=== PATIENT | female | born 1940 | race Caucasian/White ===

== ENCOUNTER 2017-08-30 10:52 | Outpatient (CLI) | payer OTHER ==
[~2017-08-30 10:52] MED LIST: DICLOFENAC POTA50 MG PO; METHOCARBAMOL500 MG PO; NAPR500T14 PO
== END 2017-08-30 11:02 | disposition home or self-care (01) ==
LOC: MAMO-SONO 10:52
DX: Z12.31 Encounter for screening mammogram for malignant neoplasm of breast (principal); Z87.898 Personal history of other specified conditions; N60.19 Diffuse cystic mastopathy of unspecified breast

== ENCOUNTER 2018-06-21 08:53 | Outpatient (CLI) | payer OTHER | END 2018-06-21 09:01 | disposition home or self-care (01) | LOC: SONOGRAMA 08:53 | DX: R10.84 Generalized abdominal pain (principal); R10.2 Pelvic and perineal pain; R10.0 Acute abdomen; E78.00 Pure hypercholesterolemia, unspecified ==

== ENCOUNTER 2018-12-29 10:53 | Outpatient (CLI) | payer OTHER | END 2018-12-29 10:58 | disposition home or self-care (01) | LOC: MAMO-SONO 10:53 | DX: Z12.31 Encounter for screening mammogram for malignant neoplasm of breast (principal); N60.11 Diffuse cystic mastopathy of right breast; N60.12 Diffuse cystic mastopathy of left breast; Z87.898 Personal history of other specified conditions; Z09 Encounter for follow-up examination after completed treatment for conditions other than malignant neoplasm ==

== ENCOUNTER → 2018-12-30 | Outpatient (CLI) | payer OTHER | END | disposition home or self-care (01) | LOC: NUCLEAR 10:00 | DX: M81.0 Age-related osteoporosis without current pathological fracture (principal) ==

== ENCOUNTER 2019-12-05 14:40 | Outpatient (CLI) | payer OTHER | END 2019-12-05 15:03 | disposition home or self-care (01) | LOC: RAD 14:40 | PROVIDERS: ATTEND Physical Medicine & Rehabilitation | DX: M54.6 Pain in thoracic spine (principal); M54.5 Low back pain; M41.86 Other forms of scoliosis, lumbar region ==

== ENCOUNTER 2020-01-26 13:45 | Outpatient (CLI) | payer OTHER | END 2020-01-26 13:54 | disposition home or self-care (01) | LOC: MAMO-SONO 13:45 | PROVIDERS: ATTEND Family Medicine | DX: Z12.31 Encounter for screening mammogram for malignant neoplasm of breast (principal); N60.11 Diffuse cystic mastopathy of right breast; N60.12 Diffuse cystic mastopathy of left breast ==

== ENCOUNTER 2020-05-02 11:15 | Outpatient (CLI) | payer OTHER | END 2020-05-02 11:17 | disposition home or self-care (01) | LOC: PPH VACUNA 11:15 | PROVIDERS: ATTEND Emergency Medicine Pediatric Emergency Medicine | DX: Z23 Encounter for immunization (principal) ==

== ENCOUNTER 2020-05-23 15:55 | Outpatient (CLI) | payer OTHER | END 2020-05-23 15:57 | disposition home or self-care (01) | LOC: PPH VACUNA 15:55 | PROVIDERS: ATTEND Emergency Medicine Pediatric Emergency Medicine | DX: Z23 Encounter for immunization (principal) ==

== ENCOUNTER → 2020-11-04 14:17 | Outpatient (CLI) | payer OTHER | END | disposition home or self-care (01) | LOC: RAD 14:17 | PROVIDERS: ATTEND Family Medicine | DX: M54.5 Low back pain (principal); M54.16 Radiculopathy, lumbar region ==

== ENCOUNTER 2021-01-09 08:00 | Outpatient (CLI) | payer OTHER | END 2021-01-09 08:30 | disposition home or self-care (01) | LOC: PPH VACUNA 08:00 | PROVIDERS: ATTEND Emergency Medicine Pediatric Emergency Medicine | DX: Z23 Encounter for immunization (principal) ==

== ENCOUNTER 2021-01-10 13:59 | Outpatient (CLI) | payer OTHER | END 2021-01-10 14:03 | disposition home or self-care (01) | LOC: NUCLEAR 13:59 | PROVIDERS: ATTEND Family Medicine | DX: M81.0 Age-related osteoporosis without current pathological fracture (principal) ==

== ENCOUNTER 2021-03-18 10:54 | Outpatient (CLI) | payer OTHER | END 2021-03-18 10:59 | disposition home or self-care (01) | LOC: MAMO-SONO 10:54 | DX: N60.11 Diffuse cystic mastopathy of right breast (principal); N60.12 Diffuse cystic mastopathy of left breast; Z12.31 Encounter for screening mammogram for malignant neoplasm of breast ==

== ENCOUNTER 2021-05-22 13:27 | Outpatient (CLI) | payer OTHER | END 2021-05-22 13:28 | disposition home or self-care (01) | LOC: RAD 13:27 | PROVIDERS: ATTEND Family Medicine | DX: S22.009A Unspecified fracture of unspecified thoracic vertebra, initial encounter for closed fracture (principal) ==

== ENCOUNTER 2021-11-10 10:04 | Emergency (ER) | payer OTHER ==
[~2021-11-10] VITALS: Ht 154.9 cm; Wt 56.7 kg
[2021-11-10] MEDS ORDERED: ROSUVASTATIN CA20 MG PO (10:45)
[2021-11-10] MEDS ORDERED: EZETIMIBE10 MG PO (10:46)
== END 2021-11-10 13:38 | disposition home or self-care (01) ==
LOC: ER 10:04
DX: B34.9 Viral infection, unspecified (principal); Z20.822 Contact with and (suspected) exposure to COVID-19; E78.00 Pure hypercholesterolemia, unspecified

== ENCOUNTER 2021-12-08 14:33 | Outpatient (CLI) | payer OTHER ==
[~2021-12-08 14:33] MED LIST changes: +EZETIMIBE10 MG PO; +ROSUVASTATIN CA20 MG PO
== END 2021-12-08 15:03 | disposition home or self-care (01) ==
LOC: PPH VACUNA 14:33
PROVIDERS: ATTEND Emergency Medicine Pediatric Emergency Medicine
DX: Z23 Encounter for immunization (principal)

== ENCOUNTER 2023-03-11 09:44 | Outpatient (CLI) | payer OTHER | END 2023-03-11 09:49 | disposition home or self-care (01) | LOC: NUCLEAR 09:44 | PROVIDERS: ATTEND Obstetrics & Gynecology Obstetrics | DX: M81.0 Age-related osteoporosis without current pathological fracture (principal) ==

== ENCOUNTER 2023-03-11 13:23 | Outpatient (CLI) | payer OTHER | END 2023-03-11 13:27 | disposition home or self-care (01) | LOC: MAMO-SONO 13:23 | PROVIDERS: ATTEND Obstetrics & Gynecology Obstetrics | DX: Z12.31 Encounter for screening mammogram for malignant neoplasm of breast (principal); N60.11 Diffuse cystic mastopathy of right breast; N60.12 Diffuse cystic mastopathy of left breast; R10.13 Epigastric pain ==

== ENCOUNTER 2023-12-31 09:37 | Outpatient (CLI) | payer OTHER | END 2023-12-31 09:41 | disposition home or self-care (01) | LOC: RAD 09:37 | PROVIDERS: ATTEND General Practice | DX: I70.0 Atherosclerosis of aorta (principal); J44.9 Chronic obstructive pulmonary disease, unspecified ==

== ENCOUNTER 2024-04-07 09:56 | Outpatient (CLI) | payer OTHER | END 2024-04-07 10:01 | disposition home or self-care (01) | LOC: RAD 09:56 | PROVIDERS: ATTEND Physical Medicine & Rehabilitation Pediatric Rehabilitation Medicine | DX: M54.16 Radiculopathy, lumbar region (principal); M54.14 Radiculopathy, thoracic region ==

== ENCOUNTER 2024-10-02 09:28 | Outpatient (CLI) | payer OTHER | END 2024-10-02 09:36 | disposition home or self-care (01) | LOC: MRI 09:28 | DX: R41.3 Other amnesia (principal); G32.89 Other specified degenerative disorders of nervous system in diseases classified elsewhere; Z81.8 Family history of other mental and behavioral disorders | CPT/HCPCS: 70551 ==

== ENCOUNTER 2024-10-19 08:10 | Outpatient (CLI) | payer OTHER | END 2024-10-19 08:11 | disposition home or self-care (01) | LOC: NUCLEAR 08:10 | DX: R00.1 Bradycardia, unspecified (principal); R07.9 Chest pain, unspecified; R41.3 Other amnesia; G32.89 Other specified degenerative disorders of nervous system in diseases classified elsewhere; Z81.8 Family history of other mental and behavioral disorders ==

== ENCOUNTER 2024-10-19 09:30 | Outpatient (CLI) | payer OTHER | END 2024-10-19 09:35 | disposition home or self-care (01) | LOC: MAMO-SONO 09:30 | PROVIDERS: ATTEND General Practice | DX: D48.61 Neoplasm of uncertain behavior of right breast (principal); D48.62 Neoplasm of uncertain behavior of left breast; Z12.31 Encounter for screening mammogram for malignant neoplasm of breast ==